=== PATIENT | female | born 1930 | race Caucasian/White ===

== ENCOUNTER → 2016-11-02 | Outpatient (CLI) | payer OTHER ==
[~2016-11-02] MED LIST: ATENOLOL PO; BACLOFEN10 MG PO; MULTI-VITAMIN1 TAB PO; NEURONTIN PO; PEPTO BISMAL; PHENERGAN PR; VICODIN 5/500 T1 TAB PO; ZOCOR PO
--- NOTE | ~2016-11-02 | NM4 ---
[facility] A Service of [facility] & [facility] RADIOLOGY TEXT RESULTS PATIENT: JAY NEVAREZ LOCATION: [facility] : 34 UNIT #: [id number] AGE: [address]: Jani Mckinley MD SEX: F ORDER DR: [id number] [facility] [address] [place], [place] [address] [id number] O MR#: [id number] Acc #: [id number] NAME: JAY NEVAREZ : 1930 SEX: F STUDY DATE/TIME: 11/02/2016 8:19 UNIT: [facility] ROOM: STUDY DESCRIPTION: [place] Bone or Joint 3 Phase Study Attending Physician: Jani Mckinley M.D. Referring Physician: Jani Mckinley M.D. Ordering Physician: Jani Mckinley M.D. Primary Care Physician: Mariya Agrawal M.D. MEDICAL IMAGING REPORT This report is preliminary unless electronic signature is present EXAM Three-phase bone scan of the knees, 11/02/2016. 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 Evaluate for loosening or infection. History sheet states intermittent pain in both knees since surgery in 2006, mostly anteriorly. Bilateral knee replacements in 2006. No fractures. COMPARISON MRI of the left knee (pre-TKR) 07/12/2005 and bilateral knee radiographs 08/30/2006 (also preop). There are no correlate radiographs post total knee replacement. TECHNIQUE The patient received 28.8 mCi technetium 99m MDP intravenously and vascular flow, blood pool, and delayed images of the knees were performed. FINDINGS The vascular flow and blood pool phases are normal. Delayed phase demonstrates minimal increased uptake in the right patella which is nonspecific and could be secondary to patellar component loosening, bone contusion, stress reaction, etc. The remainder of the right kidney is unremarkable. The opposite left knee demonstrates mild medial tibial periprosthetic uptake and very minimal patellar uptake. Findings are concerning for mild or early tibial component loosening. Degree of uptake is not strongly suggestive of a fracture. Patellar component abnormality is also possible. IMPRESSION 1. Normal phases 1 and 2. No definite evidence of infection. STS. [facility] A Service of [facility] & [facility] RADIOLOGY TEXT RESULTS PATIENT: JAY NEVAREZ LOCATION: [facility] #: [id number] : 34 UNIT #: [id number] AGE: [address]: Jani Mckinley MD SEX: F ORDER DR: 2. Mild patellar uptake on the right could reflect patellar component loosening, stress reaction, bone contusion, etc. 3. Moderate right tibial periprosthetic uptake on the left concerning for loosening of the tibial component. Minimal left patellar uptake is nonspecific and similar to the opposite right knee. 4. There are no correlative postoperative radiographs. Dictated by... Noemi Rodriguez M.D. THIS IS AN ELECTRONICALLY VERIFIED REPORT Noemi Rodriguez M.D. at 11/03/2016 1:46 PM CANELO/eve TD: 11/03/2016 10:07 JOB #: [id number] MEDICAL IMAGING REPORT Page 1 of 1 COPY
== END | disposition home or self-care (01) ==
LOC: CNUC 07:49
DX: G89.18 Other acute postprocedural pain (principal); Z96.653 Presence of artificial knee joint, bilateral
CPT/HCPCS: 78315; A9503